=== PATIENT | female | born 1940 | race Caucasian/White ===

== ENCOUNTER 2016-12-10 05:43 | Day surgery (SDC) | payer MEDICARE, OTHER ==
[~2016-12-10] VITALS: Ht 157.5 cm; Wt 76.0 kg
[~2016-12-10 05:43] MED LIST: AMARYL2 M1 PO; ASPIRIN EC81 MG PO; CULTURELLE1 CAP PO; DELTASONE DPS10 MG PO; DULCOLAX-DPS10 MG PO; KIDS COD LIVER1 EACH PO; LOMOTIL-DPS1 TAB PO; LOPID DPS600 MG PO; LOTRISONE DPS45 GM TP; MYLICON DPS80 MG PO; PLAVIX75 MG PO; TYLENOL DPS325 MG PO; VITAMIN D250000 UNIT PO; ZANTAC DPS150 MG PO
--- NOTE | 2017-01-06 10:44 | OR ---
ADMIT: 12/10/2016 RM/LOC: [facility] MR#: [id number] [address] [address] [place] [address] Operative/Delivery Room Report SEX: F AGE: 76 : 1940 SURGERY DATE: 12/10/2016 SURGEON: Walker Bell MD PREOPERATIVE DIAGNOSES: 1. Diarrhea. 2. History of uterine cancer. 3. History of colon polyps. POSTOPERATIVE DIAGNOSES: 1. A small adenomatous-appearing polyp in the ascending colon. 2. Larger polyp in the rectal anal area very near the dentate line in the posterior right lateral region of the anorectal region. PROCEDURES PERFORMED: 1. Colonoscopy with hot biopsy removal polyp in the ascending colon. 2. Random cold biopsies on the way out. 3. Biopsies of the anal mass in the posterior right area of the anorectal verge. ANESTHESIA: Sedation. ESTIMATED BLOOD LOSS: None. DESCRIPTION OF PROCEDURE: After appropriate informed consent was obtained, the patient was brought to the endoscopy suite. IV sedation was provided. Rectal exam showed some hemorrhoids, but I really did not feel much of anything concerning there. The scope was introduced passed the entire length of colon. She had a pretty good prep. She had a difficult sigmoid colon to get through a lot of tortuosity there, but ultimately, I was able to advance through this area and I advanced the scope all the way to the cecum. The ADMIT: 12/10/2016 RM/LOC: [facility] MR#: [id number] [address] [address] [place] [address] Operative/Delivery Room Report SEX: F AGE: 76 : 1940 ileocecal valve and its orifice appeared normal. The scope was slowly withdrawn and a couple folds above the ileocecal valve, was a small, subtle, adenomatous-appearing polyp was removed with several bites of the hot biopsy forceps and polypectomy site was destroyed with cautery. The scope was then slowly and carefully withdrawn. I did take random biopsies on the way out due to her diarrhea and then in the rectum right at the anorectal verge just above the dentate line on the posterior right side, was soft adenomatous mass about centimeter and a half in diameter. I took multiple cold biopsies of this, but it was something I was unable to remove completely. So, with the biopsies taken, the scope was removed without apparent complications. The patient tolerated the procedure well and was taken to the recovery room in stable condition. Walker Bell MD/ michel JOB #: [id number] CC: Walker Bell, Attending Physician Franco Alvarez, Family Physician
[2017-02-03] MEDS ORDERED: PRESERVISION A1 EACH PO (18:02)
[2017-02-03] MEDS ORDERED: LOMOTIL-DPS1 TAB PO (18:02)
[2017-02-03] MEDS ORDERED: TYLENOL DPS325 MG PO (18:03)
[2017-02-03] MEDS ORDERED: FEOSOL-DPS325 MG PO (18:04)
[2017-03-30] MEDS ORDERED: VITAMIN D50000 UNIT PO (14:29)
[2017-03-30] MEDS ORDERED: PLAVIX75 MG PO (14:29)
[2017-03-30] MEDS ORDERED: ASA CHILDREN'S81 MG PO (14:29)
[2017-03-30] MEDS ORDERED: CULTURELLE1 CAP PO (14:29)
[2017-03-30] MEDS ORDERED: MYLICON DPS80 MG PO (14:30)
[2017-03-30] MEDS ORDERED: LOPID DPS600 MG PO (14:30)
[2017-03-30] MEDS ORDERED: ZANTAC DPS150 MG PO (14:30)
[2017-03-30] MEDS ORDERED: AMARYL1 MG PO (14:30)
[2017-03-30] MEDS ORDERED: MAPAP PM (TYLEN1 TAB PO (14:31)
[2017-03-30] MEDS ORDERED: KLOR-CON M2020 ME1 PO (14:31)
[2017-03-30] MEDS ORDERED: MAG-OX400 MG PO (14:32)
[2017-03-30] MEDS ORDERED: QUESTRAN PWD378 GM PO (14:32)
== END 2016-12-10 08:52 | disposition home or self-care (01) ==
LOC: SSS 05:43
PROC: 0DBP8ZX Excision of Rectum, Via Natural or Artificial Opening Endoscopic, Diagnostic (ICD-10-PCS; principal; 2016-12-10)
PROC: 0DBK8ZX Excision of Ascending Colon, Via Natural or Artificial Opening Endoscopic, Diagnostic (ICD-10-PCS; principal; 2016-12-10)
PROC: 0DBM8ZX Excision of Descending Colon, Via Natural or Artificial Opening Endoscopic, Diagnostic (ICD-10-PCS; 2016-12-10)
PROC: 0DBL8ZX Excision of Transverse Colon, Via Natural or Artificial Opening Endoscopic, Diagnostic (ICD-10-PCS; 2016-12-10)
DX: D12.2 Benign neoplasm of ascending colon (principal); D12.9 Benign neoplasm of anus and anal canal; K21.9 Gastro-esophageal reflux disease without esophagitis; E11.9 Type 2 diabetes mellitus without complications; Z86.73 Personal history of transient ischemic attack (TIA), and cerebral infarction without residual deficits; Z90.49 Acquired absence of other specified parts of digestive tract; Z79.82 Long term (current) use of aspirin; Z88.6 Allergy status to analgesic agent; Z79.899 Other long term (current) drug therapy; Z98.890 Other specified postprocedural states

== ENCOUNTER 2017-01-07 09:40 | Day surgery (SDC) | payer MEDICARE, OTHER ==
[~2017-01-07] VITALS: Ht 157.5 cm; Wt 75.0 kg
--- NOTE | 2017-01-25 12:38 | OR ---
ADMIT: 01/07/2017 RM/LOC: [facility] MR#: [id number] [address] [address] KE[place] [address] Operative/Delivery Room Report SEX: F AGE: 76 : 1940 SURGERY DATE: 01/07/2017 SURGEON: Walker Bell MD PREOPERATIVE DIAGNOSIS: Adenomatous polyp in the rectum. POSTOPERATIVE DIAGNOSIS: Adenomatous polyp in the rectum. PROCEDURE PERFORMED: Transanal excision of rectal polyp in the right posterior lateral area of the rectum. ANESTHESIA: General endotracheal. ESTIMATED BLOOD LOSS: Less than less than 20 mL. DESCRIPTION OF PROCEDURE: After appropriate informed consent was obtained, the patient was brought to the operating room. General endotracheal anesthesia was induced. The patient was placed supine on the table in candy- cane stirrups. Anal speculum was introduced. The colon polyp was identified in the right posterior lateral aspect of the rectum just above the dentate line. I was able to place a 3-0 chromic suture cephalad to this polyp in a [id number] fashion. This tied down and held in place. I then excised the polyp in its entirety off the rectal wall. This was handed off and sent to pathology. The defect was then closed once I was sure that I had all the polyp removed, the defect was then closed with running 3-0 chromic suture. Once I was satisfied with hemostasis, the perianal area was injected with Marcaine plain and bacitracin was applied. She tolerated the procedure well and was taken to the recovery room in stable condition. Walker Bell MD/ michel JOB #: [id number] CC: Walker Bell, Attending Physician Franco Alvarez, Family Physician
[2017-02-03] MEDS ORDERED: LOMOTIL-DPS1 TAB PO (18:02)
[2017-02-03] MEDS ORDERED: PRESERVISION A1 EACH PO (18:02)
[2017-02-03] MEDS ORDERED: TYLENOL DPS325 MG PO (18:03)
[2017-02-03] MEDS ORDERED: FEOSOL-DPS325 MG PO (18:04)
[2017-03-30] MEDS ORDERED: PLAVIX75 MG PO (14:29)
[2017-03-30] MEDS ORDERED: ASA CHILDREN'S81 MG PO (14:29)
[2017-03-30] MEDS ORDERED: CULTURELLE1 CAP PO (14:29)
[2017-03-30] MEDS ORDERED: VITAMIN D50000 UNIT PO (14:29)
[2017-03-30] MEDS ORDERED: MYLICON DPS80 MG PO (14:30)
[2017-03-30] MEDS ORDERED: AMARYL1 MG PO (14:30)
[2017-03-30] MEDS ORDERED: LOPID DPS600 MG PO (14:30)
[2017-03-30] MEDS ORDERED: ZANTAC DPS150 MG PO (14:30)
[2017-03-30] MEDS ORDERED: KLOR-CON M2020 ME1 PO (14:31)
[2017-03-30] MEDS ORDERED: MAPAP PM (TYLEN1 TAB PO (14:31)
[2017-03-30] MEDS ORDERED: MAG-OX400 MG PO (14:32)
[2017-03-30] MEDS ORDERED: QUESTRAN PWD378 GM PO (14:32)
== END 2017-01-07 15:25 | disposition home or self-care (01) ==
LOC: SSS 09:40
PROC: 0DBP0ZX Excision of Rectum, Open Approach, Diagnostic (ICD-10-PCS; principal; 2017-01-07)
DX: D12.8 Benign neoplasm of rectum (principal); E11.9 Type 2 diabetes mellitus without complications; K21.9 Gastro-esophageal reflux disease without esophagitis; E78.00 Pure hypercholesterolemia, unspecified; Z98.890 Other specified postprocedural states; Z90.49 Acquired absence of other specified parts of digestive tract; Z98.49 Cataract extraction status, unspecified eye; Z79.899 Other long term (current) drug therapy

== ENCOUNTER 2017-01-30 18:07 | Inpatient (IN) | payer MEDICARE, OTHER ==
[~2017-01-30] VITALS: Ht 157.5 cm; Wt 78.0 kg
--- NOTE | ~2017-01-30 | CO ---
ADMIT: 01/30/2017 RM/LOC: 302 [facility] MR#: [id number] [address] [address] [place] [address] Consultation SEX: F AGE: 76 : 1940 DATE OF CONSULTATION: 01/31/2017 ATTENDING PHYSICIAN: Franco Alvarez CONSULTING PHYSICIAN: Feliciano Foote MD HISTORY OF PRESENT ILLNESS: This is a 76-year-old female, seen in surgical consultation for Dr. Abram Ring for rectal bleeding. Suma presented to the ER yesterday with sudden onset of bright red blood per rectum. She was evaluated there and found on exam to have bright red blood per rectum and underwent CT scan, which suggested a low rectal bleed. She does have complicated medical history and takes Plavix and aspirin anti-platelet therapy for stroke history, which was not reported at the ER consultation. Did have a transanal excision of a rectal polyp 2.5 weeks ago. She had done well up to that point with no problems. She was admitted, transfused, and continued to be monitored overnight. Since admission, before midnight, she has had several episodes of ongoing rectal blood. Her hemoglobin has drifted down to 6.7 requiring additional transfusion. She also received platelet transfusion given her anti-platelet therapy on board. Her blood pressures this morning have also been low down into the 80s and 90s. She is perfusing and cognitively alert, oriented, and appears in no acute distress. PAST MEDICAL HISTORY: 1. Hypertension. 2. History of stroke. 3. Hyperlipidemia. 4. Type 2 diabetes. 5. Ovarian cancer. 6. Spine degenerative disease. 7. Colon polyps. 8. Macular degeneration. MEDICATIONS: At home are; 1. Glimepiride. 2. Lomotil. 3. PreserVision. 4. Culturelle. 5. Aspirin. 6. Plavix. 7. Vitamin D. 8. Gemfibrozil. 9. Ranitidine. 10.Simethicone. 11.Tylenol. ALLERGIES: CODEINE AND TIZANIDINE. FAMILY HISTORY: Noncontributory. ADMIT: 01/30/2017 RM/LOC: 302 [facility] MR#: [id number] [address] [address] [address] [place] [address] Consultation SEX: F AGE: 76 : 1940 SOCIAL HISTORY: She is retired and lives here in [place]. She does not drink alcohol, or smoke cigarettes. PHYSICAL EXAMINATION: GENERAL: Suma is alert, oriented, and in no acute distress. VITAL SIGNS: Currently, blood pressure is around 90 systolically. Pulse is in the 80s. Pulse oximetry of 99% on room air. HEENT: Sclerae are grossly anicteric and pale. Cranial nerves are grossly intact. LUNGS: Clear bilaterally. HEART: Regular rate and rhythm. ABDOMEN: Soft, nontender. EXTREMITIES: Neurovascularly intact. LABORATORY STUDIES: Most recent hemoglobin of 6.7 down from 11.6 on admission. IMPRESSION: Lower gastrointestinal bleed likely post polypectomy bleed with current anti-platelet therapy on board. PLAN: Given her ongoing bleeding overnight and drop of blood pressures and hemoglobin, I have recommended proceeding with rectal exam under anesthesia to identify the polypectomy site and if that is the source, I will plan for over- sewing this. I discussed this in detail with Suma and she agrees with that as our plan. She will continue with resuscitative transfusion needs in the meantime. This will be arranged for the OR shortly. Feliciano Foote MD/ michel JOB #: [id number] CC: Franco Alvarez, Attending Physician Franco Alvarez, Family Physician
--- NOTE | ~2017-01-30 | WND ---
ADMIT: 01/30/2017 RM/LOC: 632 [facility] MR#: [id number] [facility]#: [id number] [address] [address] [address] [place] [address] W[facility] Clinic SEX: F AGE: 76 : 1940 DATE OF VISIT: 02/01/2017 TIME IN: 1500 hours. TIME OUT: 1515 hours. REASON FOR CONSULT: Old area on buttocks. HISTORY OF PRESENT ILLNESS: Suma is a 76-year-old female, who was admitted through the emergency room with a GI bleed. She has a history of a stroke and she is on aspirin and Plavix. She also has a history of ovarian cancer, where they did remote radiation. She has an area to her Botox that is an old scar from 34 years ago when she was getting radiation. She says this part never healed. She denies any complaints of pain. She states that she has not had any drainage to the area. PAST MEDICAL HISTORY: 1. Hypertension. 2. History of stroke. 3. Hyperlipidemia. 4. Type 2 diabetes mellitus. 5. Status post ovarian cancer. 6. Status post bilateral salpingo-oophorectomy remotely about 30 years ago. 7. Status post pelvic radiation therapy. 8. She has a history of severe degenerative disease of the thoracic and lumbar spine. 9. She has a history of adenomatous polyp in the rectum, which was a tubovillous adenoma, status post transanal excision of that polyp in the right posterolateral area of the rectum done on January 07, 2017. 10.Macular degeneration. 11.Legal blindness. CURRENT MEDICATIONS: 1. Glimepiride. 2. Lomotil. 3. PreserVision. 4. Culturelle. 5. Aspirin. 6. Plavix. 7. Vitamin D. 8. Gemfibrozil. 9. Ranitidine. 10.Simethicone. 11.Tylenol. ALLERGIES: Codeine. She has had a reverse drug reaction to tizanidine causing delirium. FAMILY HISTORY: Noncontributory. ADMIT: 01/30/2017 RM/LOC: 632 [facility] MR#: [id number] [address] [address] KEAN[place]UMA KAT [address] [place] [address] Wound Care Clinic SEX: F AGE: 76 : 1940 SOCIAL HISTORY: She is retired, lives here in [place]. Denies tobacco. No IV or illicit drug use. No alcohol. PHYSICAL EXAMINATION: Assessment of the coccyx area reveals a 1.5 cm circumferential raised red area on her coccyx. It is nontender. It is not draining. Perirectal area is tender red, but has intact skin. ASSESSMENT: Skin damage to above coccyx secondary to radiation 34 years ago, now healed with scar tissue. PLAN: Staff is going to apply Aloe Sim[place]on to the perirectal area secondary to the pain and tenderness she is having 3 times daily and as needed. At this time, there is no need to continue to follow Suma from Wound Care. If need arises, please contact us. I would like to thank Dr. Alvarez for allowing us to participate in her care. Sayda Garcia APRN/ michel JOB #: [id number] CC: Franco Alvarez, Attending Physician Franco Alvarez, Family Physician
--- NOTE | 2017-01-31 12:33 | HP ---
ADMIT: 01/30/2017 RM/LOC: [facility] MR#: [id number] [address] [address] [address] [address] History and Physical SEX: F AGE: 76 : 1940 DATE OF SERVICE: CHIEF COMPLAINT: Rectal bleeding. HISTORY OF PRESENT ILLNESS: The patient is a very pleasant 76-year-old female. She has a past medical history of stroke, on aspirin and Plavix; ovarian cancer, status post remote radiation therapy as well as recent transanal excision of rectal polyp in December of this year, who presents to [facility] Emergency Room with abrupt onset of bright red blood per rectum. The patient notes she just got up to the bathroom and wiped and noticed that she had a little bit of blood on toilet paper, looked in the toilet and saw that it was full of blood. The patient had no abdominal pain. No nausea, no vomiting. No chest pain, shortness of breath or any other complaints, just this bleeding, and I brought her into the emergency room. There, she was noted to be just oozing bright red blood and she is admitted for further evaluation and treatment. The patient denies any constipation, but did have some history of some diarrhea and has had that over the years since her radiation therapy 30 years ago. PAST MEDICAL HISTORY: 1. Hypertension. 2. History of stroke. 3. Hyperlipidemia. 4. Type 2 diabetes. 5. Status post ovarian cancer. 6. Status post bilateral salpingo oophorectomy, remotely about 30 years ago. 7. Status post pelvic radiation therapy. 8. She has a history of severe degenerative disease of the thoracic and lumbar spine. 9. She has a history of an adenomatous polyp in the rectum, which was a tubulovillous adenoma, status post transanal excision of that polyp in the right posterior lateral area of the rectum done on January 07, 2017. 10.Macular degeneration. 11.Legal blindness. CURRENT HOME MEDICATIONS: Include: 1. Glimepiride. 2. Lomotil. 3. PreserVision. 4. Cultural. 5. Aspirin. 6. Plavix. 7. Vitamin D. 8. Gemfibrozil. 9. Ranitidine. 10.Simethicone. 11.Tylenol. ALLERGIES: INCLUDE CODEINE. SHE HAS HAD ADVERSE DRUG REACTION TO TIZANIDINE, ADMIT: 01/30/2017 RM/LOC: [facility] MR#: [id number] [address] [address] [address] WH[address] [place] [address] History and Physical SEX: F AGE: 76 : 1940 CAUSING DELIRIUM. FAMILY HISTORY: Noncontributory. SOCIAL HISTORY: She is retired, lives here in [place]. No tobacco. No IV or illicit drugs. No alcohol. PHYSICAL EXAMINATION: VITAL SIGNS: On arrival to ER, 97.3, 127/39 96% on room air. Rate heart rate 96, respirations 16. GENERAL: This is an elderly female. She is in no apparent distress. She is awake. She is alert. She is oriented x3, cooperative with the examiner. HEENT: Normocephalic and atraumatic. Mucous membranes are moist. NECK: Supple. LUNGS: Clear. HEART: Regular. ABDOMEN: Soft, nontender, nondistended. Positive bowel sounds throughout. RECTAL: Did have bright red blood per rectum with just a few clots noted. No other obvious abnormalities were noted. Small amount of gauze was placed as tamponade. LABORATORY DATA: Shows hemoglobin 11.6, white count 6.4, 243,000 platelets. Sodium 144, potassium 3.7, BUN is 23, creatinine of 1.3. IMAGING: She did undergo a CT scan of the abdomen and pelvis while in the emergency room. The liver was unremarkable, gallbladder was not definitely seen without surgical clips. Pancreas was unremarkable. Spleen was fine. Adrenal glands and kidneys were fine. Small hiatal hernia was noted. No signs of bowel obstruction. There were no pericecal inflammatory changes. There was noted to be extensive atherosclerotic vascular calcifications seen throughout the abdomen. No osseous abnormalities were noted in the pelvis. There was question whether is an active site of bleeding with linear focus of contrast examination from the perianal region, likely from the internal hemorrhoid area, very low. There was also some generalized wall thickening involving the distal rectosigmoid colon. ASSESSMENT AND PLAN: 1. Lower gastrointestinal bleeding. 2. History of tubulovillous adenoma of the colon, status post transanal excision on January 07, 2017. 3. History of ovarian cancer, status post radiation therapy with chronic diarrhea, what sounds like chronic radiation proctitis. 4. Diabetes mellitus type 2. 5. History of stroke, on aspirin and Plavix. ADMIT: 01/30/2017 RM/LOC: 302 [facility] MR#: [id number] [address] [place] [address] ST[address] WHITE [address] [place] [address] History and Physical SEX: F AGE: 76 : 1940 At this time, the patient is hemodynamically stable. We have the second H and H that is pending. She still is oozing at this time. She received tranexamic acid in the emergency room, and I am actually going to give her a unit of platelets secondary to her qualitative platelet defect. We will have packed red cells ready. I am going to visit with Dr. Seip on the patient. I do wonder if this is just a bleeding from the site of that previous transanal excision of the tubulovillous adenoma, which would be most likely in my opinion. We will keep her n.p.o., plan IV fluids, sliding scale insulin and we will visit about further action with Dr. Foote. We will watch her closely here in the ICU, certainly might also be a candidate for some type of arteriogram with arterial embolization, but as mentioned, we will discuss further with Dr. Foote. Abram Ring MD/ michel JOB #: [id number] CC: Franco Alvarez, Attending Physician Franco Alvarez, Family Physician
--- NOTE | 2017-01-31 20:44 | OR ---
ADMIT: 01/30/2017 RM/LOC: 302 [facility] MR#: [id number] [address] [address] KE[place]USTUART KAT [address] [place] [address] Operative/Delivery Room Report SEX: F AGE: 76 : 1940 SURGERY DATE: 01/31/2017 SURGEON: Feliciano Foote MD PREOPERATIVE DIAGNOSIS: Gastrointestinal bleed. POSTOPERATIVE DIAGNOSIS: Bleeding polypectomy site. PROCEDURE: Rectal exam under anesthesia with suture ligation of polypectomy margin. ANESTHESIA: General. ESTIMATED BLOOD LOSS: 25 mL. DESCRIPTION OF PROCEDURE: The patient was taken to the operating room and placed supine on the operating room table. General anesthesia was established. The patient was placed in lithotomy position in candy-cane stirrups. The perineum was prepped and draped in the standard surgical fashion. Lighted Painter retractor was placed for visual inspection of the rectal vault. There was evidence of slight oozing at the posterior right- sided polypectomy site from transanal excision. This margin was again oozing consistent with the bleeding history through the night. This was suture ligated with [id number] 3-0 PDS suture. Three separate sutures were used along the margin of the polypectomy site for complete hemostasis. Once this was accomplished, the patient was extubated and transferred to the recovery area in stable condition. Feliciano Foote MD/ michel JOB #: [id number] CC: Franco Alvarez, Attending Physician Franco Alvarez, Family Physician
[2017-02-03] MEDS ORDERED: PRESERVISION A1 EACH PO (18:02)
[2017-02-03] MEDS ORDERED: LOMOTIL-DPS1 TAB PO (18:02)
[2017-02-03] MEDS ORDERED: TYLENOL DPS325 MG PO (18:03)
[2017-02-03] MEDS ORDERED: FEOSOL-DPS325 MG PO (18:04)
--- NOTE | 2017-02-08 14:34 | ER ---
ADMIT: 01/30/2017 RM/LOC: 302 [facility] MR#: [id number] [address] [address] CHRISTOPHER[place] [address] Emergency Room Report SEX: F AGE: 76 : 1940 DATE: 01/30/2017 ADDENDUM: This patient comes into the ER because she had a sudden onset of severe rectal bleeding. She states she stood up and felt this gush of blood come from her rectum. She has no abdominal pain, and she states she has rectal pain, but that is normal for her because she has chronic diarrhea. On physical exam, she has brisk bleeding coming from her rectum that looks almost like a small arterial bleed. I did consult with Dr. Paulino concerning treatment of this patient, he also examined the patient. We used Uro-Jet on a tube gauze and inserted it to hold some pressure. We did a CTA scan arterial phase, it did show a low bleed in her rectum. She was given tranexamic acid in the emergency room, her hemoglobin was 11.6. I spoke with Dr. Foote and then with Dr. Ring and this patient will be admitted by him. DIAGNOSIS: Rectal bleed. Please see my T-sheet. ALEM Guadalupe / Jesse Mathews MD / modl JOB #: [id number] CC: Franco Alvarez MD, Attending Physician Franco Alvarez MD, Family Physician
--- NOTE | 2017-02-16 08:55 | DS ---
ADMIT: 01/30/2017 RM/LOC: 632 [facility] MR#: [id number] 2620 [facility] [address] [place] [address] [place] [address] Discharge Summary SEX: F AGE: 76 : 1940 ADMISSION DATE: 01/30/2017 DISCHARGE DATE: 02/02/2017 CONSULTATIONS: Feliciano Foote MD FINAL DIAGNOSES: 1. Rectal bleeding. 2. Postoperative wound bleeding from rectal polyp resection. 3. Acute blood loss anemia. REASON FOR ADMISSION: Please see H and P dictated by Dr. Ring. However, briefly, Suma White admitted with severe rectal bleeding secondary to the hemorrhage from postoperative rectal polyp resection by General Surgery. Did receive consultation with General Surgery. They did oversew the area. She did receive several units of packed red blood cells, most recently receiving 1 unit of packed red blood cells on 02/01. She did have her care transitioned to myself the morning of 02/01. Hemoglobin was 8.4 post transfusion, it is 8.2 today. She is doing well. She is eating and drinking. Vital signs are stable, and she is without complaints. We will go ahead and discharge her to home to follow up in my clinic. DISPOSITION: Home. DISCHARGE CONDITION: Stable. DISCHARGE MEDICATIONS: See medication reconciliation, it is reviewed and accurate. DISCHARGE INSTRUCTIONS: Discharge to home. Follow up with myself on February 16 at 0900 and have repeat laboratories in my office on 02/05/2017. She will restart her aspirin and Plavix on 02/05 as well. I discussed this plan with the patient, expressed understanding, was in agreement, had no further questions. Thirty minutes spent on discharge activities of this patient. Franco Alvarez MD/ nguyen JOB #: [id number] CC: Franco Alvarez MD, Attending Physician Franco Alvarez MD, Family Physician
[2017-03-30] MEDS ORDERED: ASA CHILDREN'S81 MG PO (14:29)
[2017-03-30] MEDS ORDERED: CULTURELLE1 CAP PO (14:29)
[2017-03-30] MEDS ORDERED: VITAMIN D50000 UNIT PO (14:29)
[2017-03-30] MEDS ORDERED: PLAVIX75 MG PO (14:29)
[2017-03-30] MEDS ORDERED: ZANTAC DPS150 MG PO (14:30)
[2017-03-30] MEDS ORDERED: MYLICON DPS80 MG PO (14:30)
[2017-03-30] MEDS ORDERED: LOPID DPS600 MG PO (14:30)
[2017-03-30] MEDS ORDERED: AMARYL1 MG PO (14:30)
[2017-03-30] MEDS ORDERED: KLOR-CON M2020 ME1 PO (14:31)
[2017-03-30] MEDS ORDERED: MAPAP PM (TYLEN1 TAB PO (14:31)
[2017-03-30] MEDS ORDERED: QUESTRAN PWD378 GM PO (14:32)
[2017-03-30] MEDS ORDERED: MAG-OX400 MG PO (14:32)
== END 2017-02-02 14:05 | disposition home or self-care (01) | DRG 908 ==
LOC: ER 18:07 → 6PED 21:21 → 3ICU 21:21 → 6PED 02-01 13:45
PROVIDERS: ADMIT Internal Medicine
PROC: 30233N1 Transfusion of Nonautologous Red Blood Cells into Peripheral Vein, Percutaneous Approach (ICD-10-PCS; 2007-01-31)
PROC: 30233R1 Transfusion of Nonautologous Platelets into Peripheral Vein, Percutaneous Approach (ICD-10-PCS; 2017-01-30)
PROC: 0W3P7ZZ Control Bleeding in Gastrointestinal Tract, Via Natural or Artificial Opening (ICD-10-PCS; principal; 2017-01-31)
DX: K91.840 Postprocedural hemorrhage of a digestive system organ or structure following a digestive system procedure (principal); D62 Acute posthemorrhagic anemia; E11.9 Type 2 diabetes mellitus without complications; I10 Essential (primary) hypertension; R19.7 Diarrhea, unspecified; E78.5 Hyperlipidemia, unspecified; M51.34 Other intervertebral disc degeneration, thoracic region; M51.36 Other intervertebral disc degeneration, lumbar region; H35.30 Unspecified macular degeneration; H54.8 Legal blindness, as defined in USA; Z86.010 Personal history of colon polyps; Z86.73 Personal history of transient ischemic attack (TIA), and cerebral infarction without residual deficits; Z85.43 Personal history of malignant neoplasm of ovary; Z79.82 Long term (current) use of aspirin; Z79.02 Long term (current) use of antithrombotics/antiplatelets